=== PATIENT | female | born 1990 | race African-American/Black ===

== ENCOUNTER 2025-08-07 15:42 | Emergency (ER) | payer SELFPAY ==
[~2025-08-07] VITALS: Ht 165.1 cm; Wt 85.0 kg
[2025-08-07 15:57] VITALS: O2SAT 99
[2025-08-07 18:47] VITALS: TEMP 36.6; O2SAT 100
[2025-08-07 18:49] VITALS: BP 106/40; PULSE 91; RESP 16
[2025-08-07] MEDS: LIDOCAINE 5% PATCH TOP SCH (18:49)
[2025-08-07] MEDS: KETOROLAC 15MG/ML VIAL IM ONE (18:49)
[2025-08-07] MEDS ORDERED: LIDO-53 TP (20:12)
[2025-08-07] MEDS ORDERED: CYCL10TA21 MT (20:12)
[2025-08-07] MEDS ORDERED: IBUP-1455 MT (20:12)
== END 2025-08-07 20:48 | disposition home or self-care (01) ==
LOC: ER 15:42
DX: M75.91 Shoulder lesion, unspecified, right shoulder (principal); Z90.49 Acquired absence of other specified parts of digestive tract
CPT/HCPCS: 99283; 81025; 73030; 96372; J1885; A6449